=== PATIENT | female | born 1995 | race Caucasian/White ===

== ENCOUNTER 2016-05-12 19:10 | Emergency (ER) | payer SELFPAY ==
[2016-05-12] MEDS ORDERED: cefTRIAXone SODIUM 1 GM VIAL ONE (20:25)
[2016-05-12] MEDS ORDERED: Lidocaine 1% 5ml(IM or SUTURE)(PAIN CLINIC) ONE (20:25)
[2016-05-12] MEDS ORDERED: AZITHROMYCIN 1 GM PACKET PO ONE (20:25)
[2016-05-12] MEDS ORDERED: Lidocaine 1% 5ml(IM or SUTURE)(PAIN CLINIC) IJ ONE (20:25)
[2016-05-12] MEDS ORDERED: IBUPROFEN 200 MG TABLET PO ONE (20:25)
[2016-05-12] MEDS ORDERED: AZITHROMYCIN 250 MG TABLET PO ONE (20:26)
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
[2016-05-12 20:43] VITALS: BP 118/68
[2016-05-13 05:47] LABS: APPEARANCE,URINE CLEAR (CLEAR); COLOR,URINE YELLOW (YELLOW)
[2016-05-13 05:48] LABS: OCCULT BLOOD,URINE NEGATIVE (NEGATIVE); PH URINE 5.5 (5.0 - 8.0); UROBILINOGEN URINE 0.2 Eu (0.2-1.0)
== END 2016-05-12 20:42 | disposition home or self-care (01) ==
LOC: ED 19:10
DX: T76.21XA Adult sexual abuse, suspected, initial encounter (principal)
CPT/HCPCS: 81002; 81025; 96372; 99283; J0456; J0696

== ENCOUNTER 2016-08-19 22:30 | Emergency (ER) | payer SELFPAY ==
--- NOTE | 2016-08-19 22:42 | ED Physician Documentation ---
General Adult - HISTORIAN Historian: patient - HPI Stated Complaint: nausea/vomiting Chief Complaint: General Adult Onset: hours Timing: still present Severity: moderate Further Comments: yes (Pt is a 20 yo female with n/v x 2 days. Pt states menses have been irregular with LMP at end of June. No diarrhea/constipation. No fever, sore throat. Pt has had occasional cough.) - ROS CONST: other (malaise) EYES/ENT: none CVS/RESP: none GI/: vomiting, nausea MS/SKIN/LYMPH: none - PAST HX Past History: other (miscarriage x 1) Other History: none Allergies/Adverse Reactions: Allergies Allergy/AdvReac Type Severity Reaction Status Date / Time No Known Allergies Allergy Verified 08/19/16 22:59 Home Medications: Ambulatory Orders Medication Instructions Recorded Ondansetron HCl Rapdis [Zofran Odt] 4 mg PO Q8 #8 tab 08/19/16 - SOCIAL HX Smoking History: non-smoker - FAMILY HX Family History: No - VITAL SIGNS Vital Signs: Vital Signs Temp Pulse Resp BP Pulse Ox 118/68 05/12/16 20:42 - REVIEWED ASSESSMENTS Nursing Assessment Reviewed: Yes Vitals Reviewed: Yes Progress - Progress Progress: NS 1 L IVF Zofran 4 mg IV Rx Zofran 4 mg ODT po q 8 h prn #8. f/u pcp. General Adult Physical Exam - PHYSICAL EXAM GENERAL APPEARANCE: no distress EENT: pharynx normal NECK: normal inspection, supple RESPIRATORY: no resp distress, chest non-tender, breath sounds normal CVS: reg rate & rhythm, heart sounds normal ABDOMEN: soft, normal bowel sounds, tenderness (mild diffuse abd tenderness) BACK: normal inspection, no CVA tenderness SKIN: warm/dry, normal color EXTREMITIES: non-tender, normal range of motion, no evidence of injury NEURO: oriented X3, motor nml, sensation nml Discharge Clincal Impression: Nausea & vomiting Qualifiers: Vomiting type: unspecified Vomiting Intractability: non-intractable Qualified Code(s): R11.2 - Nausea with vomiting, unspecified Prescriptions: Ondansetron HCl Rapdis [Zofran Odt] 4 mg PO Q8 #8 tab Referrals: Primary Doctor,No [Primary Care Provider] - Home Medications: Ambulatory Orders Ondansetron HCl Rapdis [Zofran Odt] 4 mg PO Q8 #8 tab 08/19/16 Condition: Good Disposition: 01 HOME, SELF-CARE Decision to Admit: NO Decision Time: 23:45
[2016-08-19] MEDS ORDERED: 0.9 % SODIUM CHLORIDE 1,000 ML IV ONE (22:46)
[2016-08-19] MEDS ORDERED: ONDANSETRON HCL/PF 4 MG/ 2ML VIAL IVP ONE (22:47)
[2016-08-19 23:00] LABS: BASOPHILS % 0.4 (0.0-1.5); MEAN CORPUSCULAR HEMOGLOBIN 27.2 pg (28.0-34.0); MEAN CORPUSCULAR VOLUME 85.5 fl (80.0-100.0)
[2016-08-19 23:06] LABS: EOSINOPHILS % 2.6 % (0.0-6.8); MONOCYTES % 5.2 % (0.0-11.0); NEUTROPHILS # 3.2 # k/uL (1.4-7.7)
[2016-08-19 23:23] LABS: eGFR (African) > 60; eGFR (Non-African) > 60
[2016-08-20 00:14] VITALS: BP 118/64
[2016-08-20 05:57] LABS: APPEARANCE,URINE CLEAR (CLEAR); COLOR,URINE YELLOW (YELLOW); OCCULT BLOOD,URINE NEGATIVE (NEGATIVE); PH URINE 5.5 (5.0 - 8.0); UROBILINOGEN URINE 0.2 Eu (0.2-1.0)
== END 2016-08-19 23:55 | disposition home or self-care (01) ==
LOC: ED 22:30
DX: R11.2 Nausea with vomiting, unspecified (principal)
CPT/HCPCS: 80053; 84703; 85025; J2405; J7030; 81002; 96361; 96374; 99283; S1016

== ENCOUNTER 2016-09-03 22:09 | Emergency (ER) | payer SELFPAY ==
[2016-09-03] MEDS ORDERED: IPRATROPIUM/ALBUTEROL SULFATE 3 ML AMPUL.NEB NEB ONE (22:54)
--- NOTE | 2016-09-03 22:56 | ED Physician Documentation ---
General Adult - HISTORIAN Historian: patient - HPI Stated Complaint: SOA Chief Complaint: General Adult Additional Information: Allergy symptoms (sneezing, eyes watering, SOB intermittently) for 3 days. Took benadryl once two days ago. Better today till she chased child around the yard. No SOB. Says it hurts to breathe. Cough productive of yellow mucus. - ROS CONST: denies: fever - PAST HX Past History: asthma Allergies/Adverse Reactions: Allergies Allergy/AdvReac Type Severity Reaction Status Date / Time No Known Allergies Allergy Verified 09/03/16 22:30 Home Medications: Ambulatory Orders Medication Instructions Recorded NK [NK] 01/30/16 NK [NK] 09/03/16 - SOCIAL HX Smoking History: quit less than 1 year Drug Use: cocaine, heroin, methamphetamines, other (none for about 2 years) - FAMILY HX Family History: No (no signif) - VITAL SIGNS Vital Signs: Vital Signs Temp Pulse Resp BP Pulse Ox 99.0 F 80 20 118/68 94 09/03/16 22:10 09/03/16 22:10 09/03/16 22:10 09/03/16 22:10 09/03/16 22:10 - REVIEWED ASSESSMENTS Nursing Assessment Reviewed: Yes Vitals Reviewed: Yes Progress - Progress Progress: Chest - two views Clinical history: Shortness of breath for 1 day. Cough. Findings: Examination of the chest in PA and lateral views with no prior films for comparison demonstrates lungs to be clear. Cardiovascular and mediastinal silhouettes are within normal limits. Bony thorax is intact. Impression: 1. Negative chest. Electronically signed on September 03, 2016 11:36:01 PM CDT by: Kenton Palacios [id number] better after Duoneb. ED Results Lab/Radiology - Orders Orders: ED Orders Category Date Time Status CHEST 2 VIEW [CHEST P.A.&LAT 2 VIEWS] [RAD] Stat Exams 09/03/16 Ordered URINE HCG [URINE HCG] Stat Lab 09/03/16 Uncollected Ipratropium/Albuterol Sulfate [Duoneb] Med 09/03/16 22:54 Once 3 ml NEB NOW ONE General Adult Physical Exam - PHYSICAL EXAM GENERAL APPEARANCE: mild distress EENT: eye inspection normal, ENT inspection normal, pharynx normal, SEGUN NECK: normal inspection, supple RESPIRATORY: breath sounds normal (profoundly decreased throughout) CVS: reg rate & rhythm, heart sounds normal, no murmur RECTAL: deferred BACK: normal inspection, other (movements w/o pain) SKIN: warm/dry, normal color EXTREMITIES: no evidence of injury, no edema NEURO: CN's nml as tested, motor nml, sensation nml Discharge Clincal Impression: Asthma attack Referrals: Primary Doctor,No [Primary Care Provider] - 2 Days Additional Instructions: Take the claritin every day. Avoid all smoke. Follow up with your provider as needed. Home Medications: Ambulatory Orders NK [NK] 01/30/16 NK [NK] 09/03/16 Condition: Good Disposition: 01 HOME, SELF-CARE Decision to Admit: NO Decision Time: 23:59
[2016-09-03] MEDS ORDERED: LORATADINE 10 MG TABLET PO ONE (23:53)
--- NOTE | 2016-09-04 00:19 | Diagnostic Imaging Report ---
JUNIOR BEE~ [facility] [address] [facility].[address] [address] ~ ~ ~ ~ Report Submission Date: September 03, 2016 11:36:01 PM CDT Patient ~ Study Name: MAXIMINO CADE ~ Date: September 03, 2016 11:12:13 PM CDT ~ Modality Type: CR Gender: F ~ Description: CHEST : 95 ~ Institution: [facility] Physician: JUNIOR BEE ~ ~ ~ ~ Chest - two views Clinical history: ~Shortness of breath for 1 day. ~Cough. Findings: ~Examination of the chest in PA and lateral views with no prior films for comparison demonstrates lungs to be clear. ~Cardiovascular and mediastinal silhouettes are within normal limits. ~Bony thorax is intact. Impression: 1. ~Negative chest. ~ Electronically signed on September 03, 2016 11:36:01 PM CDT by: Kenton TRACY
[2016-09-04 06:02] VITALS: BP 122/76
== END 2016-09-04 00:10 | disposition home or self-care (01) ==
LOC: ED 22:09
DX: J45.909 Unspecified asthma, uncomplicated (principal)
CPT/HCPCS: 71020; 81025; 99283

== ENCOUNTER 2016-09-30 18:47 | Emergency (ER) | payer SELFPAY ==
[2016-09-30] MEDS: 0.9 % SODIUM CHLORIDE 1,000 ML IV ONE (19:00)
[2016-09-30 19:21] LABS: BASOPHILS % 0.6 (0.0-1.5); EOSINOPHILS % 2.8 % (0.0-6.8); MEAN CORPUSCULAR HEMOGLOBIN 28.5 pg (28.0-34.0); MEAN CORPUSCULAR VOLUME 86.9 fl (80.0-100.0); MONOCYTES % 4.2 % (0.0-11.0); NEUTROPHILS # 3.6 # k/uL (1.4-7.7)
[2016-09-30 19:40] LABS: eGFR (African) > 60; eGFR (Non-African) > 60
[2016-09-30] MEDS: ONDANSETRON HCL/PF 4 MG/ 2ML VIAL IVP ONE (20:15)
[2016-09-30] MEDS ORDERED: AZITHROMYCIN 250 MG TABLET PO ONE (20:42)
[2016-09-30] MEDS: AZITHROMYCIN 250 MG TABLET PO ONE (20:45)
[2016-09-30 20:51] VITALS: BP 120/68
--- NOTE | 2016-09-30 20:53 | ED Physician Documentation ---
General Adult - HISTORIAN Historian: patient - HPI Stated Complaint: abd pain, nausea/vomiting Chief Complaint: General Adult Onset: hours Timing: still present Severity: moderate Further Comments: yes (Pt is a 20 yo female with lower abd pain, n/v, who states that she had 2 positive urine home tests last month. Two weeks ago she says, she had what she calls her last menstrual period. Pt has also had a significant amount of coughing and wonders if she might have pneumonia.) - ROS CONST: other (malaise) EYES/ENT: nasal congestion CVS/RESP: cough GI/: abdominal pain, vomiting, nausea MS/SKIN/LYMPH: none - PAST HX Past History: other (anxiety, asthma, depression.) Allergies/Adverse Reactions: Allergies Allergy/AdvReac Type Severity Reaction Status Date / Time No Known Allergies Allergy Verified 09/30/16 19:19 Home Medications: Ambulatory Orders Medication Instructions Recorded NK [NK] 01/30/16 Albuterol Sulfate [Proair HFA] 1 inh IH Q4H PRN #1 hfa.aer.ad 09/04/16 Loratadine [Claritin] 10 mg PO DAILY #30 tablet 09/04/16 Azithromycin [Zithromax] 250 mg PO DAILY #5 tablet 09/30/16 Pnv No.122/Iron/Folic Acid 1 tab PO QDAY 09/30/16 [ Multi Tablet] - SOCIAL HX Smoking History: less than 1 pack/day - FAMILY HX Family History: No - VITAL SIGNS Vital Signs: Vital Signs Temp Pulse Resp BP Pulse Ox 98.8 F 68 16 122/60 96 09/30/16 18:50 09/30/16 18:50 09/30/16 18:50 09/30/16 18:50 09/30/16 18:50 - REVIEWED ASSESSMENTS Nursing Assessment Reviewed: Yes Vitals Reviewed: Yes Progress - Progress Progress: 1 L NS IVF Zofran 4 mg IV serum test - negative improved Rx Azithromycin 250 mg. Take one daily for 5 days. Start on 10/01/16. Rx Zofran ODT 4 mg. Take one every 8 hrs as needed for nausea/vomiting. - EKG/XRAY/CT XRAY: chest (normal) ED Results Lab/Radiology - Lab Results Lab Results: Lab Results 09/30/16 09/30/16 09/30/16 19:20 19:20 19:20 WBC 6.40 K/ul K/ul (4.00-12.00) RBC 5.03 M/ul M/ul (3.90-5.20) Hgb 14.4 g/dL g/dL (12.0-16.0) Hct 43.7 % % (34.5-46.5) MCV 86.9 fl fl (80.0-100.0) MCH 28.5 pg pg (28.0-34.0) MCHC 32.8 g/dL g/dL (30.0-36.0) RDW 14.0 % % (11.3-14.3) Plt Count 294 K/mm3 K/mm3 (130-400) Neut % (Auto) 56.8 % % (39.0-79.0) Lymph % (Auto) 33.4 % % (16.0-50.0) [place] % (Auto) 4.2 % % (0.0-11.0) Eos % (Auto) 2.8 % % (0.0-6.8) Baso % (Auto) 0.6 (0.0-1.5) Neut # 3.6 # k/uL # k/uL (1.4-7.7) Lymph # 2.1 # k/uL # k/uL (0.6-4.0) [place] # 0.3 # k/uL # k/uL (0.0-0.9) Eos # 0.2 # k/uL # k/uL (0.0-0.6) Baso # 0.0 # k/uL # k/uL (0.0-0.5) Reactive Lymphs % 2.2 % % (0.0-5.0) Reactive Lymphs # 0.1 # k/uL # k/uL (0.0-0.8) Sodium 141 mmol/L mmol/L (136-145) Potassium 3.7 mmol/L mmol/L (3.5-5.0) Chloride 107 mmol/L mmol/L (98-110) Carbon Dioxide 27 mmol/L mmol/L (20-32) BUN 9 mg/dL L mg/dL (10-26) Creatinine 0.7 mg/dL mg/dL (0.4-1.5) Estimated Creat Clear 226 Est GFR ( Amer) > 60 (60 - ) Est GFR (Non-Af Amer) > 60 (60 - ) Glucose 95 mg/dL mg/dL (70-99) Calcium 9.8 mg/dL mg/dL (8.5-10.5) Total Bilirubin 0.7 mg/dL mg/dL (0.2-1.2) AST 21 U/L U/L (0-41) ALT 15 U/L U/L (0-45) Alkaline Phosphatase 80 U/L U/L (46-116) Total Protein 7.4 g/dL g/dL (6.0-8.5) Albumin 4.7 g/dL g/dL (3.0-5.5) Serum HCG, Qual Negative (NEGATIVE) - Orders Orders: ED Orders Category Date Time Status Place IV Lock 1T Care 09/30/16 18:58 Active CBC/PLATELET/DIFF Routine Lab 09/30/16 19:20 Completed CMP Routine Lab 09/30/16 19:20 Completed SERUM HCG Stat Lab 09/30/16 19:20 Completed URINALYSIS Routine Lab 09/30/16 Ordered 0.9 % Sodium Chloride [Normal Saline] 1,000 ml Med 09/30/16 18:58 Discontinued IV Q1H General Adult Physical Exam - PHYSICAL EXAM GENERAL APPEARANCE: mild distress EENT: pharynx normal NECK: normal inspection, supple RESPIRATORY: no resp distress, chest non-tender, breath sounds normal CVS: reg rate & rhythm, heart sounds normal ABDOMEN: soft, no organomegaly, normal bowel sounds, tenderness (mild lower abd tenderness) BACK: normal inspection, no CVA tenderness SKIN: warm/dry, normal color EXTREMITIES: non-tender, normal range of motion, no evidence of injury NEURO: oriented X3, motor nml, sensation nml Discharge Clincal Impression: URI (upper respiratory infection) Qualifiers: URI type: unspecified URI Qualified Code(s): J06.9 - Acute upper respiratory infection, unspecified Nausea & vomiting Qualifiers: Vomiting type: unspecified Vomiting Intractability: non-intractable Qualified Code(s): R11.2 - Nausea with vomiting, unspecified Prescriptions: Azithromycin [Zithromax] 250 mg PO DAILY #5 tablet Referrals: Primary Doctor,No [Primary Care Provider] - Home Medications: Ambulatory Orders NK [NK] 01/30/16 Albuterol Sulfate [Proair HFA] 1 inh IH Q4H PRN #1 hfa.aer.ad 09/04/16 Loratadine [Claritin] 10 mg PO DAILY #30 tablet 09/04/16 Azithromycin [Zithromax] 250 mg PO DAILY #5 tablet 09/30/16 Pnv No.122/Iron/Folic Acid [ Multi Tablet] 1 tab PO QDAY 09/30/16 Condition: Stable Disposition: 01 HOME, SELF-CARE Decision to Admit: NO Decision Time: 20:52
--- NOTE | 2016-09-30 20:56 | Diagnostic Imaging Report ---
REGAN CHERY [facility] [address] [facility] [address] [address] Report Submission Date: Sep 30, 2016 8:40:31 PM CDT Patient Study Name: MAXIMINO CADE Date: Sep 30, 2016 8:22:04 PM CDT Modality Type: CR Gender: F Description: CHEST : 95 Institution: [facility] Physician: REGAN CHERY Chest 2 views History: Cough and fever Findings: The lungs are clear. No pleural effusions are observed. Heart size and pulmonary vascularity are normal. Osseous structures are unremarkable. Impression: Normal. Electronically signed on Sep 30, 2016 8:40:31 PM CDT by: Perry TRACY
== END 2016-09-30 20:48 | disposition home or self-care (01) ==
LOC: ED 18:47
DX: J06.9 Acute upper respiratory infection, unspecified (principal); R11.2 Nausea with vomiting, unspecified
CPT/HCPCS: 71020; 80053; 84703; 85025; J2405; J7030; 96361; 96372; 99283; S1016

== ENCOUNTER 2016-11-23 20:39 | Emergency (ER) | payer SELFPAY ==
--- NOTE | 2016-11-23 21:16 | ED Physician Documentation ---
Nausea/Vomiting/Diarrhea - HISTORIAN Historian: patient - HPI Stated Complaint: n/v Chief Complaint: Nausea,Vomiting,Diarrhea Additional Information: 3rd visit in 6 weeks for vomiting, she took a preg test and it was positive. She also states she has burning pain across her suprapubic area. she states she has had chills. all this x 3 days. frequency x 1 week. states she can drink but not eat. She has had multiple misscarriages. Onset: days ago Duration: constant Last known Well Code/Unknown Code: Known Timing: gradual onset, still present Context: denies: out of country travel, bad food, recent trauma Severity: mild Further Comments: no - Associated Symptoms Vomiting: mild. denies: bloody, bilious Abdominal Pain: burning, suprapubic - ROS CONST: none, chills CVS/RESP: denies: chest pain GI/: problems urinating (frequency) EYES/ENT: none MS/SKIN/LYMPH: denies: joint pain NEURO/PSYCH: none - PAST HX Past History: none Surgeries/Procedures: none Allergies/Adverse Reactions: Allergies Allergy/AdvReac Type Severity Reaction Status Date / Time No Known Allergies Allergy Verified 09/30/16 19:19 Home Medications: Ambulatory Orders Medication Instructions Recorded NK [NK] 01/30/16 Albuterol Sulfate [Proair HFA] 1 inh IH Q4H PRN #1 hfa.aer.ad 09/04/16 Loratadine [Claritin] 10 mg PO DAILY #30 tablet 09/04/16 Azithromycin [Zithromax] 250 mg PO DAILY #5 tablet 09/30/16 Pnv No.122/Iron/Folic Acid 1 tab PO QDAY 09/30/16 [ Multi Tablet] - SOCIAL HX Smoking History: non-smoker Alcohol Use: none Drug Use: none - FAMILY HX Family History: none - VITAL SIGNS Vital Signs: Vital Signs Temp Pulse Resp BP Pulse Ox 98.1 F 74 16 120/56 98 11/23/16 20:39 11/23/16 20:39 11/23/16 20:39 11/23/16 20:39 11/23/16 20:39 - REVIEWED ASSESSMENTS Nursing Assessment Reviewed: Yes Vitals Reviewed: Yes ED Results Lab/Radiology - Lab Results Lab Results: UA neg hcg pos - Orders Orders: ED Orders Category Date Time Status HCG [URINE HCG] Stat Lab 11/23/16 21:14 Ordered UA W MICRO [UA W/MICRO IF INDICATED] Routine Lab 11/23/16 21:13 Ordered Nausea Physical Exam - EXAM General Appearance: no acute distress, alert EENT: eye inspection normal, ENT inspection normal, pharynx normal, no signs of dehydration Neck: normal inspection Respiratory: no resp distress, breath sounds normal CVS: reg rate & rhythm, heart sounds normal Abdomen: non-tender. No: guarding, rebound Back: non-tender Skin: warm/dry, normal color Extremities: non-tender Neuro/Psych: oriented X3 Discharge Clincal Impression: Qualifiers: Weeks of gestation: less than 8 weeks Qualified Code(s): Z3A.01 - Less than 8 weeks gestation of Nausea and vomiting Qualifiers: Vomiting type: unspecified Vomiting Intractability: non-intractable Qualified Code(s): R11.2 - Nausea with vomiting, unspecified Referrals: Primary Doctor,No [Primary Care Provider] - 2 Days Home Medications: Ambulatory Orders NK [NK] 01/30/16 Albuterol Sulfate [Proair HFA] 1 inh IH Q4H PRN #1 hfa.aer.ad 09/04/16 Loratadine [Claritin] 10 mg PO DAILY #30 tablet 09/04/16 Azithromycin [Zithromax] 250 mg PO DAILY #5 tablet 09/30/16 Pnv No.122/Iron/Folic Acid [ Multi Tablet] 1 tab PO QDAY 09/30/16 Condition: Good Disposition: 01 HOME, SELF-CARE Decision to Admit: NO Date of Decison to Admit: 11/23/16 Decision Time: 21:39
[2016-11-23] MEDS: ONDANSETRON HCL 4 MG TAB.RAPDIS PO ONE (21:47)
[2016-11-23 21:54] VITALS: BP 124/62
[2016-11-24 06:39] LABS: APPEARANCE,URINE CLEAR (CLEAR); COLOR,URINE YELLOW (YELLOW); OCCULT BLOOD,URINE NEGATIVE (NEGATIVE); URINE HCG POSITIVE (NEGATIVE)
== END 2016-11-23 21:52 | disposition home or self-care (01) ==
LOC: ED 20:39
DX: R11.2 Nausea with vomiting, unspecified (principal); Z3A.01 Less than 8 weeks gestation of pregnancy
CPT/HCPCS: 81002; 81025; 99283; A9270

== ENCOUNTER 2016-11-28 07:02 | Emergency (ER) | payer SELFPAY ==
--- NOTE | 2016-11-28 07:30 | ED Physician Documentation ---
General Adult - HISTORIAN Historian: patient - HPI Stated Complaint: burning, frequency of urination Chief Complaint: General Adult Onset: days ago (1) Timing: still present Severity: moderate Further Comments: yes (Pt is a 21 yo female, LMP 6-15-17, with 4 previous first trimester miscarriages, who c/o dysuria with vag discharge and lower abd cramping this am. Pt has not established with local dry box tender physician. ) - ROS CONST: no problems EYES/ENT: none CVS/RESP: none GI/: problems urinating, nausea, other (white vag discharge) MS/SKIN/LYMPH: none - PAST HX Past History: other (multiple miscarriages, asthma) Allergies/Adverse Reactions: Allergies Allergy/AdvReac Type Severity Reaction Status Date / Time No Known Allergies Allergy Verified 11/28/16 07:12 Home Medications: Ambulatory Orders Medication Instructions Recorded NK [NK] 01/30/16 Albuterol Sulfate [Proair HFA] 1 inh IH Q4H PRN #1 hfa.aer.ad 09/04/16 Vit/Iron Fumarate/FA 1 tab PO DAILY 11/28/16 [ Tablet] - SOCIAL HX Smoking History: cigarettes - FAMILY HX Family History: No - VITAL SIGNS Vital Signs: Vital Signs Temp Pulse Resp BP Pulse Ox 98.1 F 65 15 115/46 98 11/28/16 07:13 11/28/16 07:13 11/28/16 07:13 11/28/16 07:13 11/28/16 07:13 - REVIEWED ASSESSMENTS Nursing Assessment Reviewed: Yes Vitals Reviewed: Yes Progress - Progress Progress: Vag exam, white discharge. 1 L NS in ER u/a - neg Wet prep - pos for clue cells, neg for yeast & trichomonas. Rx Clindamycin 150 mg. Take two every 12 hrs for 7 days. f/u dry box tender caitlin. ED Results Lab/Radiology - Orders Orders: ED Orders Category Date Time Status Place IV Lock 1T Care 11/28/16 07:27 Active CBC/PLATELET/DIFF Routine Lab 11/28/16 Ordered CMP Routine Lab 11/28/16 Ordered UA [URINALYSIS] Routine Lab 11/28/16 Ordered NORMAL SALINE @ 1000 MLS/HR ( 1000ml BOLUS) Med 11/28/16 07:27 Ordered 0.9 % Sodium Chloride [Normal Saline] 1,000 ml IV Q1H General Adult Physical Exam - PHYSICAL EXAM GENERAL APPEARANCE: mild distress EENT: pharynx normal NECK: normal inspection, supple RESPIRATORY: no resp distress, chest non-tender, breath sounds normal CVS: reg rate & rhythm, heart sounds normal ABDOMEN: soft, no organomegaly, normal bowel sounds BACK: normal inspection, no CVA tenderness SKIN: warm/dry, normal color EXTREMITIES: non-tender, normal range of motion, no evidence of injury NEURO: oriented X3, motor nml, sensation nml Discharge Clincal Impression: bacterial vaginitis, Referrals: Primary Doctor,No [Primary Care Provider] - Home Medications: Ambulatory Orders NK [NK] 01/30/16 Albuterol Sulfate [Proair HFA] 1 inh IH Q4H PRN #1 hfa.aer.ad 09/04/16 Vit/Iron Fumarate/FA [ Tablet] 1 tab PO DAILY 11/28/16 Condition: Good Disposition: 01 HOME, SELF-CARE Decision to Admit: NO Decision Time: 08:40
[2016-11-28] MEDS: 0.9 % SODIUM CHLORIDE 1,000 ML IV ONE (07:40)
[2016-11-28 07:53] LABS: BASOPHILS % 0.3 (0.0-1.5); EOSINOPHILS % 4.6 % (0.0-6.8); MEAN CORPUSCULAR HEMOGLOBIN 28.1 pg (28.0-34.0); MEAN CORPUSCULAR VOLUME 86.2 fl (80.0-100.0); MONOCYTES % 3.6 % (0.0-11.0); NEUTROPHILS # 4.3 # k/uL (1.4-7.7)
[2016-11-28 08:07] LABS: eGFR (African) > 60; eGFR (Non-African) > 60
[2016-11-28 08:41] VITALS: BP 122/57
[2016-11-29 05:50] LABS: APPEARANCE,URINE CLEAR (CLEAR); COLOR,URINE YELLOW (YELLOW); OCCULT BLOOD,URINE NEGATIVE (NEGATIVE); PH URINE 5.5 (5.0 - 8.0); UROBILINOGEN URINE 0.2 Eu (0.2-1.0)
== END 2016-11-28 08:39 | disposition home or self-care (01) ==
LOC: ED 07:02
DX: N76.0 Acute vaginitis (principal); Z33.1 Pregnant state, incidental
CPT/HCPCS: 80053; 81002; 85025; 87086; 87491; 87591; J7030; 96360; 99283; S1016

== ENCOUNTER 2017-01-01 21:55 | Emergency (ER) | payer SELFPAY ==
[2017-01-01 22:12] VITALS: BP 106/70
--- NOTE | 2017-01-01 22:12 | ED Physician Documentation ---
General Adult - HISTORIAN Historian: patient - HPI Chief Complaint: General Adult Onset: other (1 month) Timing: still present, worse Further Comments: yes (21 year old female patient c/o bilateral hip pain for the past month. Patient reports she is 7-8 weeks , has not used any OTC medication [employer]. LMP "end of October") - ROS CONST: no problems EYES/ENT: none CVS/RESP: none GI/: none MS/SKIN/LYMPH: joint pain (hips). denies: calf pain, neck pain, swollen glands , leg pain, back pain, ankle swelling - PAST HX Past History: asthma Allergies/Adverse Reactions: Allergies Allergy/AdvReac Type Severity Reaction Status Date / Time sertraline HCl [From Zoloft] AdvReac Hives Verified 01/01/17 22:13 Home Medications: Ambulatory Orders Medication Instructions Recorded NK [NK] 01/30/16 Albuterol Sulfate [Proair HFA] 1 inh IH Q4H PRN #1 hfa.aer.ad 09/04/16 Vit/Iron Fumarate/FA 1 tab PO DAILY 11/28/16 [ Tablet] - SOCIAL HX Smoking History: non-smoker - FAMILY HX Family History: No - VITAL SIGNS Vital Signs: Vital Signs Temp Pulse Resp BP Pulse Ox 122/57 11/28/16 08:39 - REVIEWED ASSESSMENTS Nursing Assessment Reviewed: Yes Vitals Reviewed: Yes Progress - Progress Progress: Offered Tylenol - patient prefers to take on arrival home. General Adult Physical Exam - PHYSICAL EXAM GENERAL APPEARANCE: mild distress EENT: eye inspection normal, SEGUN RESPIRATORY: no resp distress, chest non-tender, breath sounds normal CVS: reg rate & rhythm, heart sounds normal, equal pulses, no murmur, no gallop , PMI nml, no JVD, no friction rub, 24 BACK: normal inspection, no CVA tenderness SKIN: normal color, warm/dry, NR, INT, PAL, DR EXTREMITIES: normal range of motion, no evidence of injury, no edema, other (c/ o pain with flexion and extension of bilateral hips. ) NEURO: oriented X3, CN's nml as tested, motor nml, sensation nml, mood/affect nml Discharge Clincal Impression: Round ligament pain Qualifiers: Weeks of gestation: less than 8 weeks Qualified Code(s): Z3A.01 - Less than 8 weeks gestation of Referrals: Primary Doctor,No [Primary Care Provider] - 2 Days Additional Instructions: Tylenol 650-1000mg every 4 hours as needed for discomfort Belly binder may be helpful Warm bath or moist heat Get the book "WHAT TO EXPECT WHEN YOUR EXPECTING" Condition: Stable Disposition: 01 HOME, SELF-CARE Decision to Admit: NO Decision Time: 22:10
== END 2017-01-01 22:16 | disposition home or self-care (01) ==
LOC: ED 21:55
DX: R52 Pain, unspecified (principal); Z3A.01 Less than 8 weeks gestation of pregnancy
CPT/HCPCS: 99283

== ENCOUNTER → 2017-02-28 | Emergency (ER) | payer SELFPAY ==
[~2017-02-28] MED LIST: ALBUTEROL SULFATE 2.5 MG/3 ML AMPUL.NEB NEB ONE; AZITHROMYCIN 250 MG TABLET PO ONE; GUAIFENESIN 200 MG/10 ML PO ONE
[2017-02-28 22:03] VITALS: BP 126/79
--- NOTE | 2017-02-28 22:24 | ED Physician Documentation ---
General Adult - HISTORIAN Historian: patient - HPI Stated Complaint: congestion Chief Complaint: General Adult Onset: other (2 weeks) Timing: still present Severity: moderate Further Comments: yes (Pt is a 21 yo female with a cough x 2 weeks. Pt is @ 18 weeks. Pt has had a scratchy throat. No fever. Pt has hx asthma and is out of her MDI.) - ROS CONST: no problems EYES/ENT: nasal congestion CVS/RESP: cough MS/SKIN/LYMPH: none - PAST HX Past History: other (PTSD, anxiety, asthma) Allergies/Adverse Reactions: Allergies Allergy/AdvReac Type Severity Reaction Status Date / Time sertraline HCl [From Zoloft] AdvReac Hallucinati Verified 02/28/17 21:49 ons Home Medications: Ambulatory Orders Medication Instructions Recorded NK [NK] 01/30/16 Albuterol Sulfate [Proair HFA] 1 inh IH Q4H PRN #1 hfa.aer.ad 09/04/16 Vit/Iron Fumarate/FA 1 tab PO DAILY 11/28/16 [ Tablet] - SOCIAL HX Smoking History: cigarettes - FAMILY HX Family History: No - VITAL SIGNS Vital Signs: Vital Signs Temp Pulse Resp BP Pulse Ox 97.9 F 69 18 126/79 98 02/28/17 21:23 02/28/17 21:23 02/28/17 21:23 02/28/17 21:23 02/28/17 21:23 - REVIEWED ASSESSMENTS Nursing Assessment Reviewed: Yes Vitals Reviewed: Yes Progress - Progress Progress: Rx Azithromycin 250 mg. Take one tablet by mouth once daily for 5 days. Rx Guaifenesin (100 mg/5ml). Take 10 ml (2 teaspoons) by mouth every 6 hrs as needed for cough. Rx Albuterol (90 mcg/spray) MDI. Take 2 puffs every 4 to 6 hrs as needed for wheezing. ED Results Lab/Radiology - Orders Orders: ED Orders Category Date Time Status Albuterol Sulfate [Ventolin] Med 02/28/17 21:41 Discontinued 2.5 mg NEB NOW ONE Azithromycin [Zithromax] Med 02/28/17 21:42 Discontinued 500 mg PO NOW ONE Guaifenesin Med 02/28/17 22:17 Once 200 mg PO NOW ONE General Adult Physical Exam - PHYSICAL EXAM GENERAL APPEARANCE: mild distress EENT: pharynx normal NECK: normal inspection, supple RESPIRATORY: chest non-tender, wheezes (mild) CVS: reg rate & rhythm, heart sounds normal ABDOMEN: soft, no organomegaly, normal bowel sounds, other (Pt declined exam for FHT's) BACK: normal inspection, no CVA tenderness SKIN: warm/dry, normal color EXTREMITIES: non-tender, normal range of motion, no evidence of injury, no edema NEURO: oriented X3, motor nml, sensation nml Discharge Clincal Impression: Persistent cough Upper respiratory infection Qualifiers: URI type: unspecified URI Qualified Code(s): J06.9 - Acute upper respiratory infection, unspecified Referrals: Primary Doctor,No [Primary Care Provider] - Condition: Good Disposition: 01 HOME, SELF-CARE Decision to Admit: NO Decision Time: 22:24
== END | disposition home or self-care (01) ==
LOC: ED 21:21
DX: J06.9 Acute upper respiratory infection, unspecified (principal); R05 Cough
CPT/HCPCS: 99283

== ENCOUNTER 2017-03-08 16:42 | Emergency (ER) | payer SELFPAY ==
--- NOTE | 2017-03-08 17:13 | ED Physician Documentation ---
General Adult - HISTORIAN Historian: patient - HPI Stated Complaint: vag spotting in Chief Complaint: General Adult Onset: days ago (14) Timing: still present Severity: moderate Further Comments: yes (Pt is a 21 yo female at 18 and 3/7 weeks by u/ s. Pt states that she has been having vaginal spotting and abd cramping for 2 weeks. At first the spotting was very light and she was not worried about it. Spotting has become worse and is now such that pt must change her underwear every 2 to 3 hours, she says. Pt also c/o pain under her ribs. This she attributes to trying to lift a 35 lb water jug. Pt reports that she has had one twin in which only one of the twins survived to . This infant was given up for adoption. 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 This is her 4 th . 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 Jean.) - ROS CONST: no problems EYES/ENT: none CVS/RESP: chest pain GI/: abdominal pain (cramping), other (vaginal spotting) MS/SKIN/LYMPH: none - PAST HX Past History: other (PTSD, anxiety, asthma) Allergies/Adverse Reactions: Allergies Allergy/AdvReac Type Severity Reaction Status Date / Time sertraline HCl [From Zoloft] AdvReac Hallucinati Verified 03/08/17 17:14 ons Home Medications: Ambulatory Orders Medication Instructions Recorded NK [NK] 01/30/16 Albuterol Sulfate [Proair HFA] 1 inh IH Q4H PRN #1 hfa.aer.ad 09/04/16 Vit/Iron Fumarate/FA 1 tab PO DAILY 11/28/16 [ Tablet] - SOCIAL HX Smoking History: cigarettes - FAMILY HX Family History: No - VITAL SIGNS Vital Signs: Vital Signs Temp Pulse Resp BP Pulse Ox 126/79 02/28/17 21:23 - REVIEWED ASSESSMENTS Nursing Assessment Reviewed: Yes Vitals Reviewed: Yes Progress - Progress Progress: FHT's = 148 NS 1 L IVF vag exam - normal, no blood seen wet prep - neg for yeast, trichomonas, clue cells d/w Dr. Sorto at [facility] [employer] Will d/c to home and pt should f/u with telegraph plant maintainer provider in am. Suspicious for attention seeking. General Adult Physical Exam - PHYSICAL EXAM GENERAL APPEARANCE: mild distress EENT: pharynx normal NECK: normal inspection, supple RESPIRATORY: no resp distress, chest non-tender, breath sounds normal CVS: reg rate & rhythm, heart sounds normal, equal pulses ABDOMEN: soft, normal bowel sounds, other (gravid) BACK: normal inspection, CVA tenderness (R), CVA tenderness (L) SKIN: warm/dry, normal color EXTREMITIES: non-tender, normal range of motion, no evidence of injury NEURO: oriented X3, CN's nml as tested, motor nml, sensation nml Discharge Clincal Impression: , c/o vag spotting, no blood seen Referrals: Primary Doctor,No [Primary Care Provider] - Condition: Stable Disposition: 01 HOME, SELF-CARE Decision to Admit: NO Decision Time: 18:33
[2017-03-08] MEDS ORDERED: 0.9 % SODIUM CHLORIDE 1,000 ML IV ONE (17:17)
[2017-03-08 17:32] LABS: BASOPHILS % 0.3 (0.0-1.5); EOSINOPHILS % 4.4 % (0.0-6.8); MEAN CORPUSCULAR HEMOGLOBIN 28.6 pg (28.0-34.0); MEAN CORPUSCULAR VOLUME 90.4 fl (80.0-100.0); MONOCYTES % 2.4 % (0.0-11.0); NEUTROPHILS # 6.9 # k/uL (1.4-7.7)
[2017-03-08 17:40] LABS: APPEARANCE,URINE Clear (CLEAR); COLOR,URINE Yellow (YELLOW); OCCULT BLOOD,URINE Trace-intact (NEGATIVE); UROBILINOGEN URINE 0.2 Eu (0.2-1.0)
[2017-03-08 17:50] LABS: eGFR (African) > 60; eGFR (Non-African) > 60
[2017-03-08 19:48] VITALS: BP 121/62
== END 2017-03-08 19:20 | disposition home or self-care (01) ==
LOC: ED 16:42
DX: Z33.1 Pregnant state, incidental (principal)
CPT/HCPCS: 80053; 81002; 85025; J7030; 96360; 99283; S1016

== ENCOUNTER 2017-04-22 22:09 | Emergency (ER) | payer OTHER ==
[2017-04-22] MEDS ORDERED: clonazePAM 1 MG TABLET PO ONE (22:43)
--- NOTE | 2017-04-22 22:47 | ED Physician Documentation ---
General Adult - HISTORIAN Historian: patient, other (family) - HPI Stated Complaint: Rt lower ribs/mid-chest tightness/Lt upper chest pain Chief Complaint: Female Urogenital Problems Onset: hours (6-8) Timing: worse Severity: mild, moderate Further Comments: yes (pt had long hx anxiety prev on clonazepam but l25 weeks kl under care DR VORA AT [facility]) - ROS CONST: no problems. denies: fever, sweating, recent illness (lparegnancy appearss to be doing well) EYES/ENT: denies: problems with vision, sore throat CVS/RESP: chest pain (which she thinks is anxiety) GI/: none MS/SKIN/LYMPH: none NEURO/PSYCH: tingling (slight). denies: headache, fainting, dizziness - PAST HX Past History: other (anxiety depression biopolar asthma) Surgeries/Procedures: other (anxiety depression asthma bipolar) Allergies/Adverse Reactions: Allergies Allergy/AdvReac Type Severity Reaction Status Date / Time sertraline HCl [From Zoloft] AdvReac Hallucinati Verified 04/22/17 22:20 ons Home Medications: Ambulatory Orders Medication Instructions Recorded NK [NK] 01/30/16 Albuterol Sulfate [Proair HFA] 1 inh IH Q4H PRN #1 hfa.aer.ad 09/04/16 Citalopram Hydrobromide [Celexa] 10 mg PO D 04/22/17 Cyclobenzaprine HCl [Flexeril] 10 mg PO D 04/22/17 - SOCIAL HX Smoking History: non-smoker, other Alcohol Use: none Drug Use: none - FAMILY HX Family History: No - VITAL SIGNS Vital Signs: Vital Signs Temp Pulse Resp BP Pulse Ox 94 H 18 123/77 99 04/22/17 22:09 04/22/17 22:09 04/22/17 22:09 04/22/17 22:09 - REVIEWED ASSESSMENTS Nursing Assessment Reviewed: Yes Vitals Reviewed: Yes ED Results Lab/Radiology - Orders Orders: ED Orders Category Date Time Status clonazePAM [Klonopin] Med 04/22/17 22:43 Once 1 mg PO NOW ONE General Adult Physical Exam - PHYSICAL EXAM GENERAL APPEARANCE: mild distress EENT: eye inspection normal, no signs of dehydration NECK: normal inspection RESPIRATORY: no resp distress, chest non-tender, breath sounds normal. No: wheezes, rales CVS: reg rate & rhythm, heart sounds normal ABDOMEN: soft, non-tender (compatible w/ 25 weeks ) BACK: normal inspection SKIN: warm/dry, normal color. No: cyanosis, diaphoresis, jaundice, mottled EXTREMITIES: normal range of motion, no evidence of injury, no edema. No: non- tender NEURO: oriented X3, motor nml, sensation nml, mood/affect nml Discharge Clincal Impression: acute anxiety reaction, hx prev anxiety, 25 weeks Referrals: Primary Doctor,No [Primary Care Provider] - 2 Days Comments: called w/c hosp spoke w/DR JIMENEZ-athletic monitor for DR SPANGLER- attending OB. DR JIMENEZ SUGGESTED 1 DOSE OF CLONAZEPAM would be appropriate Condition: Good Disposition: 01 HOME, SELF-CARE Decision to Admit: NO Decision Time: 22:53
[2017-04-22] MEDS ORDERED: clonazePAM 0.5 MG TABLET PO ONE (22:54)
[2017-04-22 23:22] VITALS: BP 116/77
== END 2017-04-22 23:05 | disposition home or self-care (01) ==
LOC: ED 22:09
DX: F43.0 Acute stress reaction (principal)
CPT/HCPCS: 99282

== ENCOUNTER 2017-04-28 22:42 | Emergency (ER) | payer OTHER ==
[2017-04-28] MEDS ORDERED: IPRATROPIUM/ALBUTEROL SULFATE 3 ML AMPUL.NEB NEB ONE (22:54)
[2017-04-28] MEDS ORDERED: DEXAMETHASONE SOD PHOS 4 MG/ML VIAL NEB ONE (22:54)
--- NOTE | 2017-04-28 22:56 | ED Physician Documentation ---
Asthma - HISTORIAN Historian: patient - HPI Chief Complaint: Asthma Additional Information: feels like I can't get any air Onset: days ago Duration: continues in ED Initiating Event: other (doesn't know) Associated Symptoms:: trouble breathing, shortness of breath. denies: fever, sweating, hurts to breath Current Asthma Therapy: inhaled nebulizer, inhaled MDI, albuterol inhaler, albuterol nebulizer Further Comments: no - ROS CONST: no problems EYES/ENT: denies: eye redness CVS: denies: heart racing GI/: none MS/SKIN/LYMPH: denies: ankle swelling NEURO/PSYCH: anxiety. denies: dizziness, light-headedness - PAST HX Asthma: frequent attacks Lung Disease: asthma DVT/PE Risk Factors: none Surgeries/Procedures: none Allergies/Adverse Reactions: Allergies Allergy/AdvReac Type Severity Reaction Status Date / Time sertraline HCl [From Zoloft] AdvReac Hallucinati Verified 04/22/17 22:20 ons Home Medications: Ambulatory Orders Medication Instructions Recorded NK [NK] 01/30/16 Albuterol Sulfate [Proair HFA] 1 inh IH Q4H PRN #1 hfa.aer.ad 09/04/16 Citalopram Hydrobromide [Celexa] 10 mg PO D 04/22/17 Cyclobenzaprine HCl [Flexeril] 10 mg PO D 04/22/17 Hydroxyzine Pamoate [Vistaril] 25 mg PO PRN PRN 04/28/17 Loratadine [Claritin] 10 mg PO DAILY 04/28/17 - SOCIAL HX Smoking History: quit less than 1 year Alcohol Use: none Drug Use: none - FAMILY HX Family History: asthma, CAD - VITAL SIGNS Vital Signs: Vital Signs Temp Pulse Resp BP Pulse Ox 116/77 04/22/17 23:20 - REVIEWED ASSESSMENTS Nursing Assessment Reviewed: Yes Vitals Reviewed: Yes Progress - Progress Progress: feels fine after breathing treatment. wants to go home. ED Results Lab/Radiology - Orders Orders: ED Orders Category Date Time Status Dexamethasone Sod Phosphate [Decadron] Med 04/28/17 22:54 Once 4 mg NEB NOW ONE Ipratropium/Albuterol Sulfate [Duoneb] Med 04/28/17 22:54 Once 3 ml NEB NOW ONE Asthma Physical Exam - EXAM General Appearance: no acute distress, alert EENT: eye inspection normal, ENT inspection normal, no signs of dehydration Neck: nml inspection Respiratory: no resp. distress, breath sounds nml, no pain on inspiration, speaks full sentences. No: wheezes, rales, rhonchi CVS: reg rate & rhythm Abdomen: non-tender Skin: color nml, no rash Extremities: non-tender Neuro/Psych: oriented x3, neuro intact, mood/affect nml Discharge Clincal Impression: Asthma attack Qualifiers: Asthma severity: mild Asthma persistence: unspecified Qualified Code(s): J45.901 - Unspecified asthma with (acute) exacerbation Referrals: Primary Doctor,No [Primary Care Provider] - 2 Days Condition: Good Disposition: 01 HOME, SELF-CARE Decision to Admit: NO Date of Decison to Admit: 04/28/17 Decision Time: 23:32
== END 2017-04-28 23:37 | disposition home or self-care (01) ==
LOC: ED 22:42
DX: J45.901 Unspecified asthma with (acute) exacerbation (principal)
CPT/HCPCS: 94640; 99282; 99283; J1100

== ENCOUNTER 2017-07-12 23:32 | Emergency (ER) | payer OTHER ==
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
[2017-07-12] MEDS ORDERED: 0.9 % SODIUM CHLORIDE 1,000 ML IV ONE (23:56)
[2017-07-13] MEDS ORDERED: ACETAMINOPHEN 500 MG TABLET PO ONE (00:55)
[2017-07-13 01:23] VITALS: BP 120/85
[2017-07-13 06:43] LABS: APPEARANCE,URINE TURBID (CLEAR); COLOR,URINE AMBER (YELLOW); OCCULT BLOOD,URINE NEGATIVE (NEGATIVE); PH URINE 5.5 (5.0 - 8.0)
== END 2017-07-13 01:20 | disposition home or self-care (01) ==
LOC: ED 23:32
DX: R51 Headache (principal)
CPT/HCPCS: 81002; J7030; 96365; 99283; S1016

== ENCOUNTER 2017-11-22 16:31 | Emergency (ER) | payer OTHER ==
[2017-11-22] MEDS ORDERED: KETOROLAC TROMETHAMINE 60 MG/2 ML VIAL IM ONE (16:46)
--- NOTE | 2017-11-22 17:02 | ED Physician Documentation ---
General Adult - HISTORIAN Historian: patient - HPI Chief Complaint: General Adult Further Comments: yes (22 year old female patient presents with right hip pain radiating down right leg. States she took 2 flexeril and ibuprofen this morning but it did not help. Reports sciatica when . 4 month Post . Denies injury or fall.) - ROS CONST: no problems EYES/ENT: none CVS/RESP: none GI/: none MS/SKIN/LYMPH: none NEURO/PSYCH: denies: headache - PAST HX Past History: asthma Other History: other (depression; bipolar) Allergies/Adverse Reactions: Allergies Allergy/AdvReac Type Severity Reaction Status Date / Time buspirone AdvReac Hallucinati Verified 11/22/17 17:18 ons sertraline HCl [From Zoloft] AdvReac Hallucinati Verified 11/22/17 17:18 ons Home Medications: Ambulatory Orders Medication Instructions Recorded NK [NK] 01/30/16 Albuterol Sulfate [Proair HFA] 1 inh IH Q4H PRN #1 hfa.aer.ad 09/04/16 Citalopram Hydrobromide [Celexa] 20 mg PO D 04/22/17 Cyclobenzaprine HCl [Flexeril] 10 mg PO D 04/22/17 Hydroxyzine Pamoate [Vistaril] 50 mg PO PRN PRN 04/28/17 Loratadine [Claritin] 10 mg PO DAILY 04/28/17 Ondansetron HCl Rapdis [Zofran Odt] 4 mg PO Q8 PRN 07/12/17 Ranitidine HCl [Zantac] 75 mg PO BID 07/12/17 Venlafaxine HCl [Effexor] 75 mg PO QDAY 07/12/17 - SOCIAL HX Smoking History: cigarettes - FAMILY HX Family History: No - VITAL SIGNS Vital Signs: Vital Signs Temp Pulse Resp BP Pulse Ox 120/85 07/13/17 01:20 - REVIEWED ASSESSMENTS Nursing Assessment Reviewed: Yes Vitals Reviewed: Yes ED Results Lab/Radiology - Orders Orders: ED Orders Category Date Time Status UA W/MICRO IF INDICATED Stat Lab 11/22/17 16:49 Ordered Ketorolac Tromethamine [Toradol] Med 11/22/17 16:46 Discontinued 60 mg IM NOW ONE General Adult Physical Exam - PHYSICAL EXAM GENERAL APPEARANCE: [id number] N EENT: eye inspection normal, SEGUN RESPIRATORY: no resp distress, chest non-tender, breath sounds normal CVS: reg rate & rhythm, heart sounds normal, equal pulses, no murmur, no gallop , PMI nml, no JVD, no friction rub, 24 ABDOMEN: soft, no organomegaly, normal bowel sounds, no abdominal bruit, no distension, other (morbid obesity) BACK: normal inspection, no CVA tenderness SKIN: normal color, warm/dry, NR, INT, PAL, DR EXTREMITIES: non-tender, normal range of motion, no evidence of injury, no edema , J, BOTTOM CAGER NEURO: oriented X3, CN's nml as tested, motor nml, sensation nml, mood/affect nml Discharge Clincal Impression: Sciatica of right side Referrals: Naman Faith MD [Primary Care Provider] - 2 Days Additional Instructions: Ice Rest Elevation If you are unable to bear weight and continuing to have significant pain on day 3-4; see your PCP for re-evaluation and additional xrays. You may use Tylenol every 4hour as needed for pain. Limit your dose to less than 4 G per day. Do not take ibuprofen, aleve, naproxen or any other NSAID while you are on toradol. You may want to try massage, over the counter lidocaine patches, biofreeze, davon ramírez or aspercream . Condition: Stable Disposition: 01 HOME, SELF-CARE Decision to Admit: NO Decision Time: 17:01
[2017-11-22 17:31] VITALS: BP 110/80
[2017-11-23 06:09] LABS: APPEARANCE,URINE CLEAR (CLEAR); COLOR,URINE YELLOW (YELLOW); OCCULT BLOOD,URINE NEGATIVE (NEGATIVE); PH URINE 5.5 (5.0 - 8.0); UROBILINOGEN URINE 0.2 Eu (0.2-1.0)
== END 2017-11-22 17:29 | disposition home or self-care (01) ==
LOC: ED 16:31
DX: M54.31 Sciatica, right side (principal)
CPT/HCPCS: 81002; 87086; 96372; 99283; J1885

== ENCOUNTER 2017-12-16 20:49 | Emergency (ER) | payer OTHER ==
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
[2017-12-16 21:15] VITALS: BP 136/81
[2017-12-16] MEDS: KETOROLAC TROMETHAMINE 60 MG/2 ML VIAL IM ONE (21:20)
--- NOTE | 2017-12-16 21:35 | Diagnostic Imaging Report ---
STEPHANE JI (LIBRARY HELPER) - ER [facility] [id number] Counts Include [address] At [facility] [address] [address] Report Submission Date: Dec 16, 2017 9:30:50 PM CDT Patient Study Name: MAXIMINO CADE Date: Dec 16, 2017 8:55:44 PM CDT Modality Type: DX Gender: F Description: UPPER EXTREMITY : 95 Institution: [facility] Physician: STEPHANE JI (LIBRARY HELPER) - ER Left wrist 3 views Date of Exam: December 16, 2017. History: FALL ONTO LEFT WRIST TONIGHT. PAIN IN MIDLINE OF WRIST RADITATING TO PALM. HX OF FRACTURE IN LEFT WRIST 3 YEARS AGO. PATIENT DENIES AND WAS SHIELDED WITH LAP SHIELD IN ED ROOM FOR XRAY. (Hx) / ITS.REASON Fell and landed on wrist (DICOM Hx) / ITS.REASON Fell and landed on wrist (Pt comments) Findings: There is no evidence of acute fracture or dislocation. The radiocarpal alignment is maintained. The carpal bones and visualized metacarpals are intact. Impression: No acute osseous abnormality. Electronically signed on Dec 16, 2017 9:30:50 PM CDT by: Elizabeth TRACY
== END 2017-12-16 21:20 | disposition home or self-care (01) ==
LOC: ED 20:49
DX: S63.502A Unspecified sprain of left wrist, initial encounter (principal); W19.XXXA Unspecified fall, initial encounter; Y92.018 Other place in single-family (private) house as the place of occurrence of the external cause; Y93.9 Activity, unspecified; Y99.9 Unspecified external cause status
CPT/HCPCS: 73110; J1885; 96372; 99284

== ENCOUNTER 2017-12-23 15:55 | Outpatient (CLI) | payer OTHER ==
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
== END 2017-12-23 15:56 ==
LOC: RAD 15:55
PROVIDERS: ATTEND Family Medicine
DX: M25.532 Pain in left wrist (principal)
CPT/HCPCS: 73110

== ENCOUNTER 2018-03-04 06:47 | Outpatient (CLI) | payer OTHER ==
[2018-03-04 07:54] LABS: BASOPHILS % 0.5 (0.0-1.5); EOSINOPHILS % 5.7 % (0.0-6.8); MEAN CORPUSCULAR HEMOGLOBIN 27.9 pg (28.0-34.0); MONOCYTES % 3.7 % (0.0-11.0); NEUTROPHILS # 4.2 # k/uL (1.4-7.7)
[2018-03-04 09:26] LABS: eGFR (Non-African) > 60
== END 2018-03-04 06:54 | disposition home or self-care (01) ==
LOC: LAB 06:47
PROVIDERS: ATTEND Physician Assistant
DX: R53.83 Other fatigue (principal); Z13.6 Encounter for screening for cardiovascular disorders
CPT/HCPCS: 36415; 80053; 80061; 84439; 84443; 84481; 85025

== ENCOUNTER 2018-03-29 14:32 | Outpatient (CLI) | payer OTHER ==
--- NOTE | 2018-03-29 15:17 | Diagnostic Imaging Report ---
JERRY TALBOT [facility] [address] [facility] [address] [address] Report Submission Date: Mar 29, 2018 3:15:09 PM RAILROAD REPAIRER Patient Study Name: MAXIMINO CADE Date: Mar 29, 2018 2:35:30 PM RAILROAD REPAIRER Modality Type: DX Gender: F Description: PELVIS : 95 Institution: [facility] Physician: JERRY TALBOT Examination: Plain film right hip History: RIGHT HIP PAIN DURING , PAIN WORSENED POST X 8 MONTHS. (Hx) Comparison exams: None provided Findings: 2 views of the right hip demonstrate normal cortical margins. No fracture no dislocation. No soft tissue abnormality. Impression: No acute osseous abnormality. Electronically signed on Mar 29, 2018 3:15:09 PM RAILROAD REPAIRER by: Giovanny TRACY
== END 2018-03-29 14:33 ==
LOC: RAD 14:32
PROVIDERS: ATTEND Physician Assistant
DX: M25.551 Pain in right hip (principal)
CPT/HCPCS: 73502

== ENCOUNTER 2018-05-09 16:43 | Emergency (ER) | payer SELFPAY ==
[2018-05-09 17:00] VITALS: BP 111/70
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
--- NOTE | 2018-05-09 18:02 | Diagnostic Imaging Report ---
VERA ALBARRAN [facility] [address] [facility] [address] 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 The disc and vertebral body height are normal. There pseudosubluxation of C3 on C4 no soft tissue swelling is identified normal cervical curvature. T1 is obscured by shoulders Impression: Straighten normal cervical curve. No acute cervical spine pathology. If pain persist, consider CT cervical spine Electronically signed on May 09, 2018 5:55:30 PM POULTRY SCIENTIST by: Reji TRACY
--- NOTE | 2018-05-09 18:03 | Diagnostic Imaging Report ---
VERA ALBARRAN [facility] [address] [facility] 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 I see no fracture lytic change.. No pedicle destruction or spondylolysis. Impression: Straighten normal lumbar lordotic curve otherwise negative Electronically signed on May 09, 2018 5:57:21 PM ELECTROLESS PLATER by: Reji TRACY
--- NOTE | 2018-05-09 18:04 | Diagnostic Imaging Report ---
VERA ALBARRAN [facility] [address] [facility] 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 No acute pathology is identified. There is thoracolumbar levoscoliosis. There is no paravertebral mass Electronically signed on May 09, 2018 5:56:19 PM STRUCTURAL STEEL WORKER by: Reji TRACY
== END 2018-05-09 18:13 | disposition home or self-care (01) ==
LOC: ED 16:43
DX: S39.012A Strain of muscle, fascia and tendon of lower back, initial encounter (principal); S29.012A Strain of muscle and tendon of back wall of thorax, initial encounter; V48.6XXA Car passenger injured in noncollision transport accident in traffic accident, initial encounter; Y93.89 Activity, other specified; Y92.410 Unspecified street and highway as the place of occurrence of the external cause
CPT/HCPCS: 72040; 72072; 72100; 99283; 99285

== ENCOUNTER 2018-05-20 20:51 | Emergency (ER) | payer SELFPAY ==
[2018-05-20] MEDS ORDERED: HYDROcodone /APAP 5/325 1 EACH TABLET PO ONE (21:51)
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
[2018-05-20] MEDS ORDERED: AMOXICILLIN/POT 875/125 1 EACH PO ONE (22:40)
[2018-05-20 23:01] VITALS: BP 126/77
== END 2018-05-20 22:52 | disposition home or self-care (01) ==
LOC: ED 20:51
DX: L03.011 Cellulitis of right finger (principal); B95.7 Other staphylococcus as the cause of diseases classified elsewhere
CPT/HCPCS: 10060; 87070; 99283; A9270